=== PATIENT | male | born 1950 | race Caucasian/White ===

== ENCOUNTER → 2016-11-07 | Outpatient (CLI) | payer BC ==
[2016-11-07 18:31] LABS: BLOOD UREA NITROGEN 10 mg/dl (7-18); BUN/CREATININE RATIO 9.3 (10-20); CALCIUM 9.2 mg/dl (8.5-10.1); CARBON DIOXIDE 25 mmol/L (21-32); CHLORIDE 109 mmol/L (98-107); GLUCOSE 102 mg/dl (70-99); POTASSIUM 3.7 mmol/L (3.5-5.1); SODIUM 143 mmol/L (136-145)
== END | disposition home or self-care (01) ==
LOC: C.LABMFLN 16:37
PROVIDERS: ATTEND Family Medicine
DX: R73.01 Impaired fasting glucose (principal)

== ENCOUNTER → 2017-02-16 | Outpatient (CLI) | payer BC ==
[2017-02-16 18:19] LABS: ALT/SGPT 21 U/L (12-78); AST/SGOT 28 U/L (15-37); BLOOD UREA NITROGEN 17 mg/dl (7-18); BUN/CREATININE RATIO 13.5 (10-20); CALCIUM 9.4 mg/dl (8.5-10.1); CARBON DIOXIDE 26 mmol/L (21-32); CHLORIDE 108 mmol/L (98-107); CREATININE 1.28 mg/dl (0.60-1.40); GLUCOSE 94 mg/dl (70-99); POTASSIUM 4.5 mmol/L (3.5-5.1); SODIUM 140 mmol/L (136-145)
[2017-02-16 18:30] LABS: ALKALINE PHOSPHATASE 67 U/L (45-117)
== END | disposition home or self-care (01) ==
LOC: C.LABMFLN 15:25
PROVIDERS: ATTEND Family Medicine
DX: F41.1 Generalized anxiety disorder (principal); R73.01 Impaired fasting glucose; R63.5 Abnormal weight gain

== ENCOUNTER → 2017-03-29 | Outpatient (CLI) | payer BC | END | disposition home or self-care (01) | LOC: C.LABMFLN 16:20 | PROVIDERS: ATTEND Family Medicine | DX: F31.9 Bipolar disorder, unspecified (principal) ==

== ENCOUNTER → 2017-08-31 | Outpatient (CLI) | payer BC ==
[2017-08-31 18:32] LABS: BLOOD UREA NITROGEN 19 mg/dl (7-18); CALCIUM 9.9 mg/dl (8.5-10.1); CARBON DIOXIDE 22 mmol/L (21-32); CREATININE 1.65 mg/dl (0.60-1.40); GLUCOSE 101 mg/dl (70-99); POTASSIUM 4.2 mmol/L (3.5-5.1); SODIUM 135 mmol/L (136-145)
== END | disposition home or self-care (01) ==
LOC: C.LABMFLN 16:10
PROVIDERS: ATTEND Family Medicine
DX: H53.8 Other visual disturbances (principal)

== ENCOUNTER → 2017-11-15 | Outpatient (CLI) | payer BC ==
--- NOTE | 2017-11-15 15:52 | DIAGNOSTIC IMAGING REPORT ---
RENAL ULTRASOUND HISTORY: CHRONIC KIDNEY DISEASE COMPARISON: None. FINDINGS: Right kidney: 11 cm. No hydronephrosis. Normal corticomedullary differentiation and cortical thickness. Left kidney: 11.2 cm. No hydronephrosis. Normal corticomedullary differentiation and cortical thickness. Bladder: No bladder wall thickening. The bilateral ureteral jets were identified. Punctate echogenic foci seen within the bladder consistent with debris. The bladder is mildly distended. IMPRESSION: 1. Normal bilateral kidneys. 2. Debris filled bladder. No bladder wall thickening. Electronically signed by: Bogdan Noguera M.D. 11/15/2017 3:51 PM Dictated Date/Time: 11/15/2017 3:49 PM
== END | disposition home or self-care (01) ==
LOC: C.ULTR 14:52
PROVIDERS: ATTEND Family Medicine
DX: N18.3 Chronic kidney disease, stage 3 (moderate) (principal)

== ENCOUNTER 2020-10-22 18:48 | Inpatient (IN) ==
[2020-10-22] MEDS ORDERED: SODIUM CHLORIDE 0.9% 1000ML 1,000 ML IV ONE (18:55)
--- NOTE | 2020-10-22 19:00 | Emergency Department Note ---
Impression & Plan Acute Lyme disease, Abnormal LFTs, Weakness ED Provider Note NAME: NOLA MURILLO AGE: 70 SEX: M : 1950 ARRIVES VIA: Ambulance INFORMANT: Patient, EMS personnel ED PROVIDER(S): Karel Iqbal DO CHIEF COMPLAINT: Weakness HPI: The patient is a 70-year-old male who presented to the emergency department for an evaluation of generalized weakness. The patient normally lives at home. He has been lying on the couch for 4 days not able to get off. He was incontinent of stool as well as urine. The patient noticed a rash behind his left knee. He describes no chest pain. He denies having any shortness of breath or cough. He was noted to have a low-grade fever by the prehospital personnel. He denies having any recent traveling. He did not get the Covid vaccination. The patient states that he has been having generalized weakness and every time he tries to go off the couch she cannot do it. He has had decreased p.o. intake because of this. He notices no swelling in his legs but he does have pain in the area where the rashes. He does live in a tick infested area. The patient was also supposed to have x-rays of his lower back because of ongoing back pain recently. ROS: See above HPI for pertinent positives & negatives. A total of 10 systems reviewed and were otherwise negative. PAST MEDICAL HISTORY: See Below PAST SURGICAL HISTORY: See Below FAMILY HISTORY: See Below SOCIAL HISTORY: See Below HOME MEDICATIONS: See Below ALLERGIES: See Below VITALS: See Below PHYSICAL EXAMINATION: GENERAL: The patient is awake and alert. He is somewhat anxious appearing. EYES: The conjunctivae are clear. The pupils are round and reactive. EARS, NOSE, MOUTH AND THROAT: The nose is without any evidence of any deformity. Mucous membranes are dry. NECK: The neck is nontender and supple. RESPIRATORY: Normal respiratory effort is noted there is no evidence of wheezing rhonchi or rales CARDIOVASCULAR: Regular rate and rhythm noted there no murmurs rubs or gallops normal S1 normal S2. GASTROINTESTINAL: The abdomen is soft. Abdomen is nontender. MUSCULOSKELETAL/EXTREMITIES: There is no evidence of gross deformity full range of motion is noted in the hips and shoulders. SKIN: There is no pedal edema noted. Skin is warm and dry. No calf tenderness was elicited. There is a large bull's-eye rash in the left popliteal fossa. NEUROLOGIC: Patient is awake alert and oriented x 3. 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 Patient is able to hold each leg off the bed. MEDICAL DECISION MAKING: The patient is a 70-year-old male who presented to the emergency department for an evaluation of generalized weakness. The patient noticed a rash behind his left knee. This rash does appear to be consistent with Lyme disease. I discussed the patient's laboratory and radiographic studies with him. He was treated with IV fluids as well as IV antibiotics. He was found to have elevated liver function studies which could represent other tickborne illness. I discussed the patient[facility] have agreed to evaluate the patient in the emergency department for further management and disposition. The patient was feeling much better on subsequent reevaluation. Triage Nursing notes reviewed. Prior medical records reviewed Vital Signs: reviewed and remarkable for no significant abnormalities Differential diagnosis: Infection, dehydration, metabolic abnormality, hypo/hyperglycemia, electrolyte disturbance, anemia, hypoxia, cardiac sources, intracerebral event, toxicologic, neurologic, as well as other pathologies. ER treatment provided: See below Diagnostics interpreted by me: Cardiac Monitoring: An order was placed for continuous cardiac monitoring. The monitor shows a rate of 89 bpm with sinus rhythm. Laboratory studies: As stated above and show below. Imaging studies: See below Consultation(s): I discussed this case with Dr. Foster who is [facility] He is agreed to evaluate the patient in the emergency department. Past Med/Surg History Medical History Abdominal bloating Abdominal pain, generalized Anxiety Chronic insomnia Diverticular disease History of encephalitis History of lumbar puncture History of rheumatic fever as a child Hypertension Surgical History History of appendectomy History of colonoscopy History of lumbar spinal fusion History of nasal polypectomy History of tonsillectomy History of tooth extraction all teeth removed History of uvulectomy Family History Father Family history of diabetes mellitus Coronary heart disease Uncle Family history of diabetes mellitus Aunt Family history of diabetes mellitus Other No family history of adverse response to anesthesia Social History Smoking Status: Never smoker Age Started Using Tobacco: 22; Age Quit Using Tobacco: 51; Second Hand Exposure: No; Hx Alcohol Use: Yes Alcohol type: beer Hx Substance Use: No Preferred Language: Georgian Communication Ability: Effective Laundry Routeman Required: No Beliefs That Will Affect Care: None Current Living Situation: Alone Other Information That Helps Us Care for You: No Feels Safe at Home: Yes Safety Concerns: Feels Safe At This Time Childhood Exposure to Second-Hand Smoke: No Seatbelt Use: always Sunscreen Use: Yes Assistive Devices: None Allergies Allergies Allergy/AdvReac Type Severity Reaction Status Date / Time bee venom protein (honey bee) Allergy Severe facial Verified 10/22/20 19:25 swelling No Known Drug Allergies Allergy Verified 10/22/20 19:25 Home Meds Previous Rx's Medication Instructions Recorded amlodipine 2.5 mg tablet 2.5 mg PO QAM #90 tab 05/20/20 mirtazapine 45 mg tablet 45 mg PO HS #90 tab 05/20/20 trazodone 50 mg tablet 150 mg PO HS #90 tab 05/20/20 quetiapine 100 mg tablet See Rx Instructions .ROUTE 08/26/20 .COMPLEX #84 tab olanzapine 20 mg tablet 20 mg PO HS #30 tab 09/18/20 Results & Data (ED) Vital Signs Vital Signs - 24 hr 10/22/20 18:59 10/22/20 19:08 10/22/20 19:30 Temperature 37 C Temperature Source Oral Pulse Rate 90 Pulse Rate from SpO2 Sensor Pulse Rhythm Regular Pulse Strength Normal Respiratory Rate 18 Respiratory Effort / Characteristics Non-Labored Non-Labored Respiratory Depth Normal Blood Pressure 139/95 Blood Pressure Mean 109 Pulse Oximetry 97 95 Oxygen Delivery Method Room Air Room Air Sepsis Recent Fever Within 48 Hours No Sepsis New/Unexplained Change in Mental Status N/A Sepsis Action Taken by Nursing No Action Required 10/22/20 20:17 10/22/20 20:22 10/22/20 20:30 Temperature Temperature Source Pulse Rate 79 78 80 Pulse Rate from SpO2 Sensor 79 79 80 Pulse Rhythm Pulse Strength Respiratory Rate 25 H 30 H 29 H Respiratory Effort / Characteristics Respiratory Depth Blood Pressure 141/79 H 139/80 Blood Pressure Mean 99 99 Pulse Oximetry 93 94 94 Oxygen Delivery Method Sepsis Recent Fever Within 48 Hours Sepsis New/Unexplained Change in Mental Status Sepsis Action Taken by Nursing 10/22/20 20:31 10/22/20 21:00 10/22/20 21:30 Temperature Temperature Source Pulse Rate 78 82 81 Pulse Rate from SpO2 Sensor 77 82 Pulse Rhythm Pulse Strength Respiratory Rate 24 17 24 Respiratory Effort / Characteristics Respiratory Depth Blood Pressure 144/80 H Blood Pressure Mean 101 Pulse Oximetry 93 94 Oxygen Delivery Method Sepsis Recent Fever Within 48 Hours Sepsis New/Unexplained Change in Mental Status Sepsis Action Taken by Nursing 10/22/20 22:00 10/22/20 22:01 10/22/20 22:30 Temperature Temperature Source Pulse Rate 77 78 88 Pulse Rate from SpO2 Sensor 77 78 Pulse Rhythm Pulse Strength Respiratory Rate 27 H 25 H 20 Respiratory Effort / Characteristics Respiratory Depth Blood Pressure 131/75 127/96 Blood Pressure Mean 93 106 Pulse Oximetry 93 93 Oxygen Delivery Method Sepsis Recent Fever Within 48 Hours Sepsis New/Unexplained Change in Mental Status Sepsis Action Taken by Usp Medications Current Medication List: was personally reviewed by me Laboratory Data Attestation: I reviewed the patient's lab results. Result diagrams: 10/22/20 19:24 10/22/20 19:24 Lab Results 10/22/20 10/22/20 10/22/20 Range/Units 18:57 18:57 19:00 WBC (4.8-10.8) K/uL RBC (4.7-6.1) M/uL Hgb (14.0-18.0) g/dL Hct (42-52) % MCV (80-100) fL MCH (25-34) pg MCHC (32-36) g/dL RDW Std Deviation (36.4-46.3) fL RDW Coeff of Sravani (11.5-14.5) % Plt Count (130-400) K/uL MPV (7.4-10.4) fL Immature Gran % (Auto) % Neut % (Auto) % Lymph % (Auto) % Nicholas % (Auto) % Eos % (Auto) % Baso % (Auto) % Neut # (Auto) (1.4-6.5) K/uL Lymph # (Auto) (1.2-3.4) K/uL Nicholas # (Auto) (0.11-0.59) K/uL Eos # (Auto) (0-0.5) K/uL Baso # (Auto) (0-0.2) K/uL Immature Gran # (Auto) (0.00-0.02) K/uL PT (9.0-12.0) Seconds INR (0.9-1.1) APTT (21.0-31.0) Seconds PTT Ratio Sodium (136-145) mmol/L Potassium (3.5-5.1) mmol/L Chloride (98-107) mmol/L Carbon Dioxide (21-32) mmol/L Anion Gap (3-11) BUN (7-18) mg/dl Creatinine (0.6-1.4) mg/dl Est Cr Clr Drug Dosing ml/min Est GFR ( Amer) ml/min Est GFR (Non-Af Amer) ml/min BUN/Creatinine Ratio (10-20) Glucose (70-99) mg/dl Lactate 2.3 H* (0.4-2.0) mmol/L Calcium (8.5-10.1) mg/dl Magnesium (1.8-2.4) mg/dl Total Bilirubin (0.2-1) mg/dl AST (15-37) U/L ALT (12-78) U/L Alkaline Phosphatase (45-117) U/L Troponin I (0-0.045) ng/ml Total Protein (6.4-8.2) gm/dl Albumin (3.4-5.0) gm/dl Globulin (2.5-4.0) gm/dl Albumin/Globulin Ratio (0.9-2) Procalcitonin (0-0.5) ng/ml Anaplasma Smear Lyme Disease IgG Ab (Negative) Lyme Disease IgM Ab (Negative) COVID-19 Eval Order Covid19 at [facility] SARS-CoV-2 (PCR) NEGATIVE (Negative) 10/22/20 10/22/20 10/22/20 Range/Units 19:24 19:24 19:24 WBC 11.02 H (4.8-10.8) K/uL RBC 5.58 (4.7-6.1) M/uL Hgb 15.7 (14.0-18.0) g/dL Hct 47.8 (42-52) % MCV 85.7 (80-100) fL MCH 28.1 (25-34) pg MCHC 32.8 (32-36) g/dL RDW Std Deviation 47.1 H (36.4-46.3) fL RDW Coeff of Sravani 15.0 H (11.5-14.5) % Plt Count 190 (130-400) K/uL MPV 10.9 H (7.4-10.4) fL Immature Gran % (Auto) 1.0 % Neut % (Auto) 74.6 % Lymph % (Auto) 13.0 % Nicholas % (Auto) 10.1 % Eos % (Auto) 0.7 % Baso % (Auto) 0.6 % Neut # (Auto) 8.22 H (1.4-6.5) K/uL Lymph # (Auto) 1.43 (1.2-3.4) K/uL Nicholas # (Auto) 1.11 H (0.11-0.59) K/uL Eos # (Auto) 0.08 (0-0.5) K/uL Baso # (Auto) 0.07 (0-0.2) K/uL Immature Gran # (Auto) 0.11 H (0.00-0.02) K/uL PT (9.0-12.0) Seconds INR (0.9-1.1) APTT (21.0-31.0) Seconds PTT Ratio Sodium (136-145) mmol/L Potassium (3.5-5.1) mmol/L Chloride (98-107) mmol/L Carbon Dioxide (21-32) mmol/L Anion Gap (3-11) BUN (7-18) mg/dl Creatinine (0.6-1.4) mg/dl Est Cr Clr Drug Dosing ml/min Est GFR ( Amer) ml/min Est GFR (Non-Af Amer) ml/min BUN/Creatinine Ratio (10-20) Glucose (70-99) mg/dl Lactate (0.4-2.0) mmol/L Calcium (8.5-10.1) mg/dl Magnesium (1.8-2.4) mg/dl Total Bilirubin (0.2-1) mg/dl AST (15-37) U/L ALT (12-78) U/L Alkaline Phosphatase (45-117) U/L Troponin I (0-0.045) ng/ml Total Protein (6.4-8.2) gm/dl Albumin (3.4-5.0) gm/dl Globulin (2.5-4.0) gm/dl Albumin/Globulin Ratio (0.9-2) Procalcitonin (0-0.5) ng/ml Anaplasma Smear See Comment Lyme Disease IgG Ab Negative (Negative) Lyme Disease IgM Ab Positive A (Negative) COVID-19 Eval Order SARS-CoV-2 (PCR) (Negative) 10/22/20 10/22/20 10/22/20 Range/Units 19:24 19:24 19:24 WBC (4.8-10.8) K/uL RBC (4.7-6.1) M/uL Hgb (14.0-18.0) g/dL Hct (42-52) % MCV (80-100) fL MCH (25-34) pg MCHC (32-36) g/dL RDW Std Deviation (36.4-46.3) fL RDW Coeff of Sravani (11.5-14.5) % Plt Count (130-400) K/uL MPV (7.4-10.4) fL Immature Gran % (Auto) % Neut % (Auto) % Lymph % (Auto) % Nicholas % (Auto) % Eos % (Auto) % Baso % (Auto) % Neut # (Auto) (1.4-6.5) K/uL Lymph # (Auto) (1.2-3.4) K/uL Nicholas # (Auto) (0.11-0.59) K/uL Eos # (Auto) (0-0.5) K/uL Baso # (Auto) (0-0.2) K/uL Immature Gran # (Auto) (0.00-0.02) K/uL PT 10.5 (9.0-12.0) Seconds INR 1.0 (0.9-1.1) APTT 23.6 (21.0-31.0) Seconds PTT Ratio 0.9 Sodium 134 L (136-145) mmol/L Potassium 3.7 (3.5-5.1) mmol/L Chloride 98 (98-107) mmol/L Carbon Dioxide 31 (21-32) mmol/L Anion Gap 5.0 (3-11) BUN 25 H (7-18) mg/dl Creatinine 1.10 (0.6-1.4) mg/dl Est Cr Clr Drug Dosing 85.5 ml/min Est GFR ( Amer) 79.0 ml/min Est GFR (Non-Af Amer) 68.1 ml/min BUN/Creatinine Ratio 23.0 H (10-20) Glucose 102 H (70-99) mg/dl Lactate (0.4-2.0) mmol/L Calcium 8.7 (8.5-10.1) mg/dl Magnesium 3.0 H (1.8-2.4) mg/dl Total Bilirubin 1.1 H (0.2-1) mg/dl AST 246 H (15-37) U/L ALT 111 H (12-78) U/L Alkaline Phosphatase 72 (45-117) U/L Troponin I < 0.015 (0-0.045) ng/ml Total Protein 8.2 (6.4-8.2) gm/dl Albumin 3.2 L (3.4-5.0) gm/dl Globulin 5.0 H (2.5-4.0) gm/dl Albumin/Globulin Ratio 0.6 L (0.9-2) Procalcitonin 0.56 H (0-0.5) ng/ml Anaplasma Smear Lyme Disease IgG Ab (Negative) Lyme Disease IgM Ab (Negative) COVID-19 Eval Order SARS-CoV-2 (PCR) (Negative) 10/22/20 Range/Units 20:47 WBC (4.8-10.8) K/uL RBC (4.7-6.1) M/uL Hgb (14.0-18.0) g/dL Hct (42-52) % MCV (80-100) fL MCH (25-34) pg MCHC (32-36) g/dL RDW Std Deviation (36.4-46.3) fL RDW Coeff of Sravani (11.5-14.5) % Plt Count (130-400) K/uL MPV (7.4-10.4) fL Immature Gran % (Auto) % Neut % (Auto) % Lymph % (Auto) % Nicholas % (Auto) % Eos % (Auto) % Baso % (Auto) % Neut # (Auto) (1.4-6.5) K/uL Lymph # (Auto) (1.2-3.4) K/uL Nicholas # (Auto) (0.11-0.59) K/uL Eos # (Auto) (0-0.5) K/uL Baso # (Auto) (0-0.2) K/uL Immature Gran # (Auto) (0.00-0.02) K/uL PT (9.0-12.0) Seconds INR (0.9-1.1) APTT (21.0-31.0) Seconds PTT Ratio Sodium (136-145) mmol/L Potassium (3.5-5.1) mmol/L Chloride (98-107) mmol/L Carbon Dioxide (21-32) mmol/L Anion Gap (3-11) BUN (7-18) mg/dl Creatinine (0.6-1.4) mg/dl Est Cr Clr Drug Dosing ml/min Est GFR ( Amer) ml/min Est GFR (Non-Af Amer) ml/min BUN/Creatinine Ratio (10-20) Glucose (70-99) mg/dl Lactate 1.8 (0.4-2.0) mmol/L Calcium (8.5-10.1) mg/dl Magnesium (1.8-2.4) mg/dl Total Bilirubin (0.2-1) mg/dl AST (15-37) U/L ALT (12-78) U/L Alkaline Phosphatase (45-117) U/L Troponin I (0-0.045) ng/ml Total Protein (6.4-8.2) gm/dl Albumin (3.4-5.0) gm/dl Globulin (2.5-4.0) gm/dl Albumin/Globulin Ratio (0.9-2) Procalcitonin (0-0.5) ng/ml Anaplasma Smear Lyme Disease IgG Ab (Negative) Lyme Disease IgM Ab (Negative) COVID-19 Eval Order SARS-CoV-2 (PCR) (Negative) Administered Medications Doxycycline Hyclate 100 mg/ (Dextrose) 110 mls @ 50 mls/hr IV Q12H ROSS Stop: 11/02/20 00:59 Last Infusion: 10/23/20 03:11 Dose: 0 mls/hr Documented by: [id number] Admin: 10/23/20 01:05 Dose: 50 mls/hr Documented by: [id number] Temazepam (Temazepam 15 Mg Capsule) 30 mg PO HSZ PRN PRN Reason: Insomnia Stop: 11/22/20 00:04 Last Admin: 10/23/20 00:41 Dose: 30 mg Documented by: [id number] Discontinued Medications Sodium Chloride (Nss 1000ml) 1,000 mls @ 999 mls/hr IV .[id number] ONE Stop: 10/22/20 19:55 Last Infusion: 10/22/20 21:00 Dose: 0 mls/hr Documented by: [id number] Admin: 10/22/20 19:43 Dose: 999 mls/hr Documented by: [id number] Ceftriaxone Sodium (Rocephin) 1,000 mg in 50 mls @ 100 mls/hr IV NOW STA Stop: 10/22/20 19:54 Last Infusion: 10/22/20 20:33 Dose: 0 mls/hr Documented by: [id number] Admin: 10/22/20 19:43 Dose: 100 mls/hr Documented by: [id number] Ioversol (Optiray 320 100ml) 100 ml IV ONCE ONE Stop: 10/22/20 22:51 Last Admin: 10/22/20 22:50 Dose: 93 ml Documented by: [id number] Imaging Data Radiologist's Impression: Chest X-Ray 10/22/20 18:55 XR chest 1V portable CLINICAL HISTORY: SEPSIS COMPARISON STUDY: No previous studies for comparison. FINDINGS: The heart is enlarged. There are bibasilar opacities likely atelectatic although an infectious/inflammatory process could appear similar. Th ere is no failure. There are no large pleural effusions.[ IMPRESSION: 1. Cardiomegaly 2. Bibasilar opacities, likely atelectatic although an infectious/inflammatory process could appear similar ACT 112: Negative or not required by law. Electronically signed by: Alcon Antonio M.D. 10/22/2020 7:16 PM Discharge Plan Visit Data Chief Complaint: Weakness ED Provider: Karel Iqbal Discharge Problem: Acute Lyme disease, Abnormal LFTs, Weakness Patient Disposition: Admitted As Inpatient Condition: Good Discharge Instructions Interventions: ED Discharge Assessment Last Done: 10/22/20 23:45
--- NOTE | 2020-10-22 19:17 | XRay Report ---
XR chest 1V portable CLINICAL HISTORY: SEPSIS COMPARISON STUDY: No previous studies for comparison. FINDINGS: The heart is enlarged. There are bibasilar opacities likely atelectatic although an infecti ous/inflammatory process could appear similar. There is no failure. There are no large pleural effusi ons.[ IMPRESSION: 1. Cardiomegaly 2. Bibasilar opacities, likely atelectatic although an infectious/inflammatory process could appear s imilar ACT 112: Negative or not required by law. Electronically signed by: Alcon Antonio M.D. 10/22/2020 7:16 PM
[2020-10-22] MEDS ORDERED: cefTRIAXone SODIUM 1,000 MG/50 ML BAG IV STA (19:25)
[2020-10-22 19:50] LABS: Basophils # (auto) 0.07 K/uL (0-0.2); Basophils % (auto) 0.6 %; Eosinophils # (auto) 0.08 K/uL (0-0.5); Eosinophils % (auto) 0.7 %; Hematocrit (blood only) 47.8 % (42-52); Hemoglobin 15.7 g/dL (14.0-18.0); Immature Granulocytes # (auto) 0.11 K/uL (0.00-0.02); Lymphocytes # (auto) 1.43 K/uL (1.2-3.4); Mean Corpuscular Hemoglobin 28.1 pg (25-34); Mean Corpuscular Hgb Conc 32.8 g/dL (32-36); Mean Corpuscular Volume 85.7 fL (80-100); Mean Platelet Volume 10.9 fL (7.4-10.4); Monocytes # (auto) 1.11 K/uL (0.11-0.59); Monocytes % (auto) 10.1 %; Neutrophils # (auto) 8.22 K/uL (1.4-6.5); Neutrophils % (auto) 74.6 %; Platelet Count 190 K/uL (130-400); RDW Standard Deviation 47.1 fL (36.4-46.3); Red Blood Count 5.58 M/uL (4.7-6.1); White Blood Count 11.02 K/uL (4.8-10.8)
[2020-10-22 20:00] LABS: Partial Thromboplastin Ratio 0.9; Partial Thromboplastin Time 23.6 Seconds (21.0-31.0); Prothrombin Time 10.5 Seconds (9.0-12.0)
[2020-10-22 20:06] LABS: Alanine Aminotransferase 111 U/L (12-78); Albumin Level 3.2 gm/dl (3.4-5.0); Aspartate Aminotransferase 246 U/L (15-37); Blood Urea Nitrogen 25 mg/dl (7-18); Calcium 8.7 mg/dl (8.5-10.1); Carbon Dioxide 31 mmol/L (21-32); Chloride 98 mmol/L (98-107); Creatinine Clr Calc Pharmacy 85.5 ml/min; Est GFR (Non-African American) 68.1 ml/min; Glucose 102 mg/dl (70-99); Potassium 3.7 mmol/L (3.5-5.1); Sodium 134 mmol/L (136-145)
[2020-10-22 20:11] LABS: Albumin Globulin Ratio 0.6 (0.9-2); Alkaline Phosphatase 72 U/L (45-117); Bilirubin,Total 1.1 mg/dl (0.2-1); Total Protein 8.2 gm/dl (6.4-8.2); Troponin I < 0.015 ng/ml (0-0.045)
[2020-10-22 20:38] LABS: Lyme Ab IgG w/WB Rflx Negative (Negative)
[2020-10-22 21:04] LABS: Lyme Ab IgM w/WB Rflx Positive (Negative)
--- NOTE | 2020-10-22 22:47 | History & Physical Report ---
Date of Service October 22, 2020 Assessment & Plan (1) Lyme disease: Placed on ceftriaxone 2 g IV daily and doxycycline 100 mg IV every 12 hours Anaplasmosis smear negative. Ig M+ with IgG for Lyme disease pending. Western blot confirmation will be sent Anaplasmosis antibody pending Ehrlichiosis and babesiosis testing pending Present on Admission?: Yes (2) Pneumonia: Bibasilar infiltrates Ceftriaxone IV and doxycycline IV as noted above. Mildly hypoxic with pulse ox 93% on room air DuoNebs every 2 hours as needed Present on Admission?: Yes (3) Bipolar 1 disorder: Bipolar 1 disorder/persistent insomnia/SISI- Continue usual regimen of mirtazapine, olanzapine, Seroquel and trazodone. Patient reports that he has done better in the past with addition of temazepam 30 mg at bedtime as needed Present on Admission?: Yes (4) CKD (chronic kidney disease), stage III: Creatinine within normal range 1.10 Present on Admission?: Yes (5) Generalized anxiety disorder: See above Present on Admission?: Yes (6) Persistent insomnia: See above Present on Admission?: Yes (7) Neurogenic claudication due to lumbar spinal stenosis: No complaints today Present on Admission?: Yes (8) Benign essential hypertension: Continue amlodipine 2.5 mg daily Present on Admission?: Yes (9) Impaired fasting glucose: Glucose 102 upon admission. Unless elevated on follow-up laboratories, would not pursue Accu-Cheks at this time Present on Admission?: Yes (10) Abnormal LFTs: CT abdomen and pelvis without acute findings related to liver disease. Question whether secondary to spirochete illness. Follow laboratory serially Present on Admission?: Yes History of Present Illness Chief Complaint: The patient presents to the emergency department with progressively worsening weakness over the past 4 days, and today noticed a circ ular red rash on the medial aspect of his left knee Primary Care Provider: Saeid Pastor MD The patient is a 70-year-old male with a past medical history including neurogenic claudication due to lumbar spinal stenosis, hypertension, bipolar 1 disorder, CKD stage III, chronic diarrhea, SISI, impaired fasting glucose, obes ity and persistent insomnia. He reports that he lives near [facility], where there are plenty of ticks, but does not remember ever having a tick bite in his medial left knee area. He reports that he has been unable to get up off of his couch for the past few days, and he was noted to be incontinent of stool and urine when found by EMS personnel today. Allergies Allergy/AdvReac Type Severity Reaction Status Date / Time bee venom protein (honey bee) Allergy Severe facial Verified 10/22/20 19:25 swelling No Known Drug Allergies Allergy Verified 10/22/20 19:25 Home Medications Medication Instructions Recorded Confirmed Type amlodipine 2.5 mg tablet 2.5 mg PO QAM #90 tab 05/20/20 10/22/20 Rx mirtazapine 45 mg tablet 45 mg PO HS #90 tab 05/20/20 10/22/20 Rx trazodone 50 mg tablet 150 mg PO HS #90 tab 05/20/20 10/22/20 Rx quetiapine 100 mg tablet See Rx Instructions .ROUTE 08/26/20 10/22/20 Rx .COMPLEX #84 tab olanzapine 20 mg tablet 20 mg PO HS #30 tab 09/18/20 10/22/20 Rx Past Med/Surg History Medical History Abdominal bloating Abdominal pain, generalized Anxiety Chronic insomnia Diverticular disease History of encephalitis History of lumbar puncture History of rheumatic fever as a child Hypertension Surgical History History of appendectomy History of colonoscopy History of lumbar spinal fusion History of nasal polypectomy History of tonsillectomy History of tooth extraction all teeth removed History of uvulectomy Family History Father Family history of diabetes mellitus Coronary heart disease Uncle Family history of diabetes mellitus Aunt Family history of diabetes mellitus Other No family history of adverse response to anesthesia Social History Smoking Status: Unknown if ever smoked Age Started Using Tobacco: 22; Age Quit Using Tobacco: 51; Second Hand Exposure: No; Hx Alcohol Use: Yes Alcohol type: wine Hx Substance Use: No Preferred Language: Malawian Communication Ability: Effective 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 Required: No Beliefs That Will Affect Care: Muslim Muslim Beliefs: "doesnt believe in prolonging life, no surgeries if needed" Current Living Situation: Alone Feels Safe at Home: Yes Childhood Exposure to Second-Hand Smoke: No Seatbelt Use: always Sunscreen Use: Yes Assistive Devices: Denture - Upper, Denture - Lower and Glasses Review of Systems Review of Systems: The patient denies chest pain, palpitations, shortness of breath, dyspnea on exertion, cough, lower extremity swelling, sore throat, fevers, chills, sweats, nausea, vomiting, diarrhea , constipation, abdominal pain, pelvic pain, blood in urine or stool, dysuria, urinary frequency or urgency, loss of consciousness, abnormal bruising or bleeding, imbalance, focal weakness, numbness or tingling in arms or legs, generalized arthralgias or myalgias, back or neck pain, or night sweats. The review of systems is otherwise negative other than for that already noted above, and at least 10 systems have been reviewed. Physical Exam Physical Exam: The patient is awake, alert and oriented 3, appears unkempt, normocephalic and atraumatic, lying in bed and in no acute distress. HEENT--PERRL, EOMI, mucous membranes and oropharynx normal. Neck--supple. No JVD. No bruits. Thyroid normal, trachea midline, no adenopathy. Heart--normal S1 and S2. No murmurs, rubs or gallops. Lungs--decreased breath sounds at the bases bilaterally. No respiratory distress, no accessory muscle use. Abdomen--normal bowel sounds and soft. Nontender. Nondistended. Morbidly obese Extremities--no cyanosis or clubbing. No edema. Dermatologic--along the medial and posterior aspect of left knee, there is a mildly warm and red rash. Neurologic--cranial nerves II through XII grossly intact. Rheumatologic--normal range of motion. Psychiatric--normal affect. Results & Data Results & Data ([facility]) Vital Signs (Past 12 Hours) Vital Signs Temp Pulse Resp BP Pulse Ox 10/22/20 22:01 78 25 H 93 10/22/20 22:00 77 27 H 131/75 93 10/22/20 21:30 81 24 10/22/20 21:00 82 17 144/80 H 94 10/22/20 20:31 78 24 93 10/22/20 20:30 80 29 H 139/80 94 10/22/20 20:22 78 30 H 94 10/22/20 20:17 79 25 H 141/79 H 93 10/22/20 19:08 95 10/22/20 18:59 98.6 F 90 18 139/95 97 Laboratory Results Laboratory Results WBC 11.02 K/uL (4.8-10.8) H 10/22/20 19:24 RBC 5.58 M/uL (4.7-6.1) 10/22/20 19:24 Hgb 15.7 g/dL (14.0-18.0) 10/22/20 19:24 Hct 47.8 % (42-52) 10/22/20 19:24 MCV 85.7 fL (80-100) 10/22/20 19:24 MCH 28.1 pg (25-34) 10/22/20 19:24 MCHC 32.8 g/dL (32-36) 10/22/20 19:24 RDW Std Deviation 47.1 fL (36.4-46.3) H 10/22/20 19:24 RDW Coeff of Sravani 15.0 % (11.5-14.5) H 10/22/20 19:24 Plt Count 190 K/uL (130-400) 10/22/20 19:24 MPV 10.9 fL (7.4-10.4) H 10/22/20 19:24 Immature Gran % (Auto) 1.0 % 10/22/20 19:24 Neut % (Auto) 74.6 % 10/22/20 19:24 Lymph % (Auto) 13.0 % 10/22/20 19:24 Jasper % (Auto) 10.1 % 10/22/20 19:24 Eos % (Auto) 0.7 % 10/22/20 19:24 Baso % (Auto) 0.6 % 10/22/20 19:24 Neut # (Auto) 8.22 K/uL (1.4-6.5) H 10/22/20 19:24 Lymph # (Auto) 1.43 K/uL (1.2-3.4) 10/22/20 19:24 Jasper # (Auto) 1.11 K/uL (0.11-0.59) H 10/22/20 19:24 Eos # (Auto) 0.08 K/uL (0-0.5) 10/22/20 19:24 Baso # (Auto) 0.07 K/uL (0-0.2) 10/22/20 19:24 Immature Gran # (Auto) 0.11 K/uL (0.00-0.02) H 10/22/20 19:24 PT 10.5 Seconds (9.0-12.0) 10/22/20 19:24 INR 1.0 (0.9-1.1) 10/22/20 19:24 APTT 23.6 Seconds (21.0-31.0) 10/22/20 19:24 PTT Ratio 0.9 10/22/20 19:24 Sodium 134 mmol/L (136-145) L 10/22/20 19:24 Potassium 3.7 mmol/L (3.5-5.1) 10/22/20 19:24 Chloride 98 mmol/L (98-107) 10/22/20 19:24 Carbon Dioxide 31 mmol/L (21-32) 10/22/20 19:24 Anion Gap 5.0 (3-11) 10/22/20 19:24 BUN 25 mg/dl (7-18) H 10/22/20 19:24 Creatinine 1.10 mg/dl (0.6-1.4) 10/22/20 19:24 Est Cr Clr Drug Dosing 85.5 ml/min 10/22/20 19:24 Est GFR ( Amer) 79.0 ml/min 10/22/20 19:24 Est GFR (Non-Af Amer) 68.1 ml/min 10/22/20 19:24 BUN/Creatinine Ratio 23.0 (10-20) H 10/22/20 19:24 Glucose 102 mg/dl (70-99) H 10/22/20 19:24 Lactate 1.8 mmol/L (0.4-2.0) 10/22/20 20:47 Calcium 8.7 mg/dl (8.5-10.1) 10/22/20 19:24 Magnesium 3.0 mg/dl (1.8-2.4) H 10/22/20 19:24 Total Bilirubin 1.1 mg/dl (0.2-1) H 10/22/20 19:24 AST 246 U/L (15-37) H 10/22/20 19:24 ALT 111 U/L (12-78) H 10/22/20 19:24 Alkaline Phosphatase 72 U/L (45-117) 10/22/20 19:24 Troponin I < 0.015 ng/ml (0-0.045) 10/22/20 19:24 Total Protein 8.2 gm/dl (6.4-8.2) 10/22/20 19:24 Albumin 3.2 gm/dl (3.4-5.0) L 10/22/20 19:24 Globulin 5.0 gm/dl (2.5-4.0) H 10/22/20 19:24 Albumin/Globulin Ratio 0.6 (0.9-2) L 10/22/20 19:24 Procalcitonin 0.56 ng/ml (0-0.5) H 10/22/20 19:24 Anaplasma Smear See Comment 10/22/20 19:24 Lyme Disease IgG Ab Negative (Negative) 10/22/20 19:24 Lyme Disease IgM Ab Positive (Negative) A 10/22/20 19:24 COVID-19 Eval Order Covid19 at [facility] 10/22/20 18:57 SARS-CoV-2 (PCR) NEGATIVE (Negative) 10/22/20 18:57 Impressions Chest X-Ray 10/22/20 18:55 XR chest 1V portable CLINICAL HISTORY: SEPSIS COMPARISON STUDY: No previous studies for comparison. FINDINGS: The heart is enlarged. There are bibasilar opacities likely atelectatic although an infectious/inflammatory process could appear similar. There is no failure. There are no large pleural effusions.[ IMPRESSION: 1. Cardiomegaly 2. Bibasilar opacities, likely atelectatic although an infectious/inflammatory process could appear similar ACT 112: Negative or not required by law. Electronically signed by: Alcon Antonio M.D. 10/22/2020 7:16 PM Diagnostic Findings [facility] Patient: NOLA MURILLO (Male) : 52 Status: ER Date: 10/22/20 23:04 Room #: History: ELEVATED LFT'S Slices: [phone] Priors: Tech: Siddhartha Davila @ [phone] Exams: CT ABDOMEN & PELVIS With Contrast Contrast: IV Amt: 93 ML OPTIRAY 320 Accession Numbers: [id number] Preliminary Findings Only See Final Report For Complete Findings CT ABDOMEN & PELVIS With Contrast: No acute intra-abdominal abnormality. Fat-containing right inguinal hernia. Bibasilar atelectasis. Radiologist: Kel Reed MD Study ready at 23:08 and initial results transmitted at 23:20 *This report constitutes a preliminary interpretation only. Non-acute findings felt to be unrelated to the clinical presentation may not be discussed in this report. The study will be interpreted and a final report will be generated by t local Radiologist the following shift. To reach the hospital radiology department call [phone]. If a discrepancy is found between the preliminary and final interpretations of this study, please notify us via our Client Portal at [email or web address] QA Exams.You can also fax this report with a description of the discrepancy, or include the final report, to our daytime fax number [phone].If faxing, please indicate the severity of discrepancy using one of the following categories: [ ] 1 - Agree/Informational [ ] 2 - Unlikely to Affect Management [ ] 3 - Possible Eventual Change of Management [ ] 4 - Probable Immediate Change of Management For all other patient related information, please fax us at [phone]. [id number] Code Status & VTE Plan Code Status Full code VTE Prophylaxis Plan VTE Prophylaxis will be ordered: Yes PG Care Time/CCT Total # of Minutes Spent Total Time Spent with Patient: Total time spent is greater than 50% in coordination of care (as documented) at patient's floor/unit and/or counseling patient: Coding Level of Care Code 47309 Initial Inpt Care Lvl 3 Diagnoses Lyme disease A69.20 Pneumonia J18.9 Bipolar 1 disorder F31.9 CKD (chronic kidney disease), stage III N18.3 Generalized anxiety disorder F41.1 Persistent insomnia G47.00 Neurogenic claudication due to lumbar spinal stenosis M48.062 Benign essential hypertension I10 Impaired fasting glucose R73.01 Abnormal LFTs R94.5
[2020-10-22] MEDS ORDERED: OPTIRAY 320 100ml IV ONE (22:50)
[2020-10-23] MEDS ORDERED: ONDANSETRON INJ 2 MG/ML 2 ML VIAL IV PRN (00:05)
[2020-10-23] MEDS ORDERED: ALBUT/IPRATROP 3MG/0.5MG NEB 3 ML VIAL NEB PRN (00:05)
[2020-10-23] MEDS ORDERED: TEMAZEPAM 15 MG CAPSULE PO PRN (00:05)
[2020-10-23] MEDS: DOXYCYCLINE HYCLATE 100 MG in DEXTROSE 5% 100 ML IV SCH ×2 (01:05→13:45)
[2020-10-23 01:42] LABS: Appearance Urine Clear (Clear); Bacteria Urine Automated Negative (Negative); Bilirubin Urine Negative (Negative); Blood Urine Trace (Negative); Color Urine Dark Yellow; Glucose Urine UA Negative (Negative); Ketones Urine Negative (Negative); Leukocyte Esterase Urine Negative (Negative); Nitrite Urine Negative (Negative); Protein Urine 1+ (Negative); Specific Gravity Urine 1.029 (1.000-1.030); Urobilinogen Urine Negative (Negative); pH Urine 5.5 (4.5-7.5)
--- NOTE | 2020-10-23 07:40 | CT Scan Report ---
ABDOMEN AND PELVIS CT WITH IV CONTRAST CT DOSE: 1519.79 mGy.cm HISTORY: Acutely elevated LFTs elevatre LFTs TECHNIQUE: Multiaxial CT images of the abdomen and pelvis were performed following the IV administrat ion of 93 cc of Optiray, A dose lowering technique was utilized adhering to the principles of ALARA. COMPARISON STUDY: Renal ultrasound 11/15/2017, lumbar spine MR 03/05/2007 FINDINGS: The imaged inferior cardiac chambers are unremarkable. Bibasilar opacities suggest atelecta sis. There is no pneumatosis or pneumoperitoneum. The spleen, pancreas, adrenal glands, and gallbladd er appear unremarkable. There is mild marginal nodularity of the liver. No ascites. No hepatic mass l esion. Patency of the hepatic and portal veins. Probable cyst of the inferior pole left kidney, 6 mm. 3 mm nonobstructing calculus of the interpolar left kidney. Unremarkable right kidney. No hydronephrosis. Mild urinary bladder distention. Calcifica tions of the central prostate. Moderate sized fat filled right inguinal hernia. Atherosclerosis of th e aorta without aneurysm. There is no adenopathy. No bowel obstruction or bowel wall thickening. Colonic diverticulosis. No CT evidence of acute divert iculitis. Appendectomy. No ascites or mesenteric inflammation. Unremarkable soft tissues. Degenerativ e changes of the spine, pelvis and hips. IMPRESSION: 1. No acute intra-abdominal or intrapelvic abnormality. 2. Mild marginal nodularity of the liver is suspicious for cirrhosis. No ascites or hepatic mass. 3. Nonobstructing left nephrolithiasis. 4. Colonic diverticulosis. 5. Moderate sized fat filled right inguinal hernia. ACT 112: Negative or not required by law. The above report was generated using voice recognition software. It may contain grammatical, syntax o r spelling errors. Electronically signed by: Warren Cardenas M.D. 10/23/2020 7:39 AM
[2020-10-23 08:29] LABS: Basophils # (auto) 0.08 K/uL (0-0.2); Basophils % (auto) 0.7 %; Eosinophils # (auto) 0.17 K/uL (0-0.5); Eosinophils % (auto) 1.4 %; Hemoglobin 15.1 g/dL (14.0-18.0); Immature Granulocytes # (auto) 0.14 K/uL (0.00-0.02); Immature Granulocytes % (auto) 1.2 %; Lymphocytes # (auto) 1.73 K/uL (1.2-3.4); Lymphocytes % (auto) 14.3 %; Mean Corpuscular Hemoglobin 28.2 pg (25-34); Mean Corpuscular Hgb Conc 32.8 g/dL (32-36); Mean Corpuscular Volume 85.8 fL (80-100); Mean Platelet Volume 10.3 fL (7.4-10.4); Monocytes # (auto) 0.74 K/uL (0.11-0.59); Monocytes % (auto) 6.1 %; Neutrophils % (auto) 76.3 %; Platelet Count 184 K/uL (130-400); RDW Coefficient of Variation 15.2 % (11.5-14.5); RDW Standard Deviation 48.4 fL (36.4-46.3); Red Blood Count 5.36 M/uL (4.7-6.1); White Blood Count 12.06 K/uL (4.8-10.8)
[2020-10-23 08:58] LABS: Albumin Level 2.9 gm/dl (3.4-5.0); BUN Creatinine Ratio 18.7 (10-20); Calcium 8.3 mg/dl (8.5-10.1); Creatinine Clr Calc Pharmacy 86.2 ml/min; Est GFR (African American) 79.8 ml/min; Est GFR (Non-African American) 68.9 ml/min; Potassium 3.4 mmol/L (3.5-5.1)
[2020-10-23] MEDS: amLODIPine BESYLATE 5 MG TAB PO SCH (09:00)
[2020-10-23] MEDS: cefTRIAXone SODIUM 2,000 MG in DEXTROSE 5% 50 ML IV SCH (09:00)
[2020-10-23 09:01] LABS: Albumin Globulin Ratio 0.6 (0.9-2); Globulin 4.8 gm/dl (2.5-4.0); Total Protein 7.7 gm/dl (6.4-8.2)
--- NOTE | 2020-10-23 13:41 | Hospitalist Progress Note ---
Date of Service October 23, 2020 Assessment & Plan (1) Lyme disease: * Anaplasmosis smear negative. * Ig M+ with IgG for Lyme disease pending. Western blot confirmation will be sent * Anaplasmosis antibody pending * Ehrlichiosis and babesiosis testing pending - Continue ceftriaxone and doxycycline -> Doing better today. Will get Wound Care as he has a significant ulcer on the posterior knee. (2) Pneumonia: CXR on 10/22 with bibasilar infiltrates. - Abx as above - DuoNebs every 2 hours as needed (3) CKD (chronic kidney disease), stage III: Baseline Cr ~1.0 - 1.1, eGFR ~70. CKD Stage II. Creatinine within normal range. - Monitor (4) Benign essential hypertension: BP today is 120/75. - Continue amlodipine 2.5 mg daily (5) Bipolar 1 disorder: Patient reports that he has done better in the past with addition of temazepam 30 mg at bedtime as needed along with some amount of Ativan. His PDMP shows no prescriptions for these, and I do not feel comfortable adding additional benzo to his mixture of medications. - Continue usual regimen of mirtazapine, olanzapine, Seroquel, and trazodone. - Add melatonin at night. (6) Generalized anxiety disorder: See above (7) Persistent insomnia: See above (8) Neurogenic claudication due to lumbar spinal stenosis: No complaints today. (9) Impaired fasting glucose: Glucose 102 upon admission. A1c was 5.6% in 05/2020. - Unless elevated on follow-up laboratories, would not pursue Accu-Cheks at this time. - Check A1c (10) Abnormal LFTs: AST/ALT were 245/[address] abdomen and pelvis without acute findings related to liver disease. - Follow -> Down today. (11) DVT prophylaxis: Lovenox 40 mg SQ daily Admission and Anticipated Discharge Date Admission Date: October 22, 2020 Subjective Feeling less weak today. Reports no fevers/chills, chest pain, shortness of breath, abdominal pain, nausea, or vomiting. Physical Exam Constitutional: WD/WN, vitals as above Eyes: EOM intact bilaterally; no conjunctival abnormality ENMT: external ear and nose normal, oropharynx normal Neck: trachea midline, no thyromegaly normal visual inspection Respiratory: normal respiratory effort, lungs clear to auscultation no respiratory distress Cardiovascular: RRR, no murmur, no edema Gastrointestinal (Abdomen): Inspection/Auscultation: abdomen normal to inspection; abdomen not distended Musculoskeletal: no cyanosis or clubbing, extremities motor strength 5/5 Skin: + ulcer (Left posterior knee) Neurologic: moves all extremities and awake Psychiatric: Orientation: alert, oriented to person and cooperative Results & Data Results & Data ([facility]) Vital Signs (Past 12 Hours) Vital Signs Temp Pulse Pulse Resp BP BP Pulse Ox 10/23/20 11:10 37.1 C 79 18 118/77 92 10/23/20 07:37 37.1 C 79 18 105/73 92 10/23/20 07:24 75 10/23/20 03:49 37.1 C 77 22 127/78 91 PG Care Time/CCT Total # of Minutes Spent Total Time Spent with Patient: Total time spent is greater than 50% in coordination of care (as documented) at patient's floor/unit and/or counseling patient: Coding Level of Care Code 05479 Subseq Hosp Care Lvl 3 Diagnoses Lyme disease A69.20 Pneumonia J18.9 CKD (chronic kidney disease), stage III N18.3 Benign essential hypertension I10 Bipolar 1 disorder F31.9 Generalized anxiety disorder F41.1 Persistent insomnia G47.00 Neurogenic claudication due to lumbar spinal stenosis M48.062 Impaired fasting glucose R73.01 Abnormal LFTs R94.5 DVT prophylaxis Z29.9
[2020-10-23] MEDS: OLANZapine 20 MG TABLET PO SCH (20:50)
[2020-10-23] MEDS: MIRTAZAPINE SOLTAB 15 MG PO SCH (20:50)
[2020-10-23] MEDS: traZODone HCL 50 MG TAB PO SCH (20:50)
[2020-10-23] MEDS: MELATONIN 3 MG TAB PO SCH (20:54)
[2020-10-24] MEDS: DOXYCYCLINE HYCLATE 100 MG in DEXTROSE 5% 100 ML IV SCH ×2 (01:46→13:26)
[2020-10-24 06:22] LABS: Hematocrit (blood only) 42.5 % (42-52); Mean Corpuscular Hemoglobin 27.9 pg (25-34); Mean Corpuscular Hgb Conc 32.9 g/dL (32-36); Mean Corpuscular Volume 84.7 fL (80-100); Mean Platelet Volume 9.7 fL (7.4-10.4); Platelet Count 163 K/uL (130-400); RDW Standard Deviation 46.1 fL (36.4-46.3); Red Blood Count 5.02 M/uL (4.7-6.1); White Blood Count 10.01 K/uL (4.8-10.8)
[2020-10-24 06:47] LABS: Basophils # (auto) 0.08 K/uL (0-0.2); Basophils % (auto) 0.8 %; Eosinophils # (auto) 0.23 K/uL (0-0.5); Eosinophils % (auto) 2.3 %; Immature Granulocytes # (auto) 0.59 K/uL (0.00-0.02); Immature Granulocytes % (auto) 5.9 %; Lymphocytes # (auto) 1.59 K/uL (1.2-3.4); Lymphocytes % (auto) 15.9 %; Monocytes # (auto) 1.01 K/uL (0.11-0.59); Monocytes % (auto) 10.1 %; Neutrophils # (auto) 6.51 K/uL (1.4-6.5); RBC Morphology Unremarkable
[2020-10-24 06:52] LABS: Albumin Level 2.7 gm/dl (3.4-5.0); BUN Creatinine Ratio 18.8 (10-20); Calcium 8.4 mg/dl (8.5-10.1); Creatinine Clr Calc Pharmacy 102.1 ml/min; Est GFR (Non-African American) 84.6 ml/min; Magnesium 2.7 mg/dl (1.8-2.4); Potassium 3.2 mmol/L (3.5-5.1)
[2020-10-24 06:55] LABS: Albumin Globulin Ratio 0.6 (0.9-2); Bilirubin,Total 0.9 mg/dl (0.2-1); Globulin 4.5 gm/dl (2.5-4.0); Phosphorus 2.8 mg/dl (2.5-4.9); Total Protein 7.2 gm/dl (6.4-8.2)
[2020-10-24 07:50] LABS: Estimated Average Glucose 123 mg/dl; Hemoglobin A1C 5.9 % (4.5-5.6)
[2020-10-24] MEDS: cefTRIAXone SODIUM 2,000 MG in DEXTROSE 5% 50 ML IV SCH (09:41)
[2020-10-24] MEDS: POTASSIUM CHLORIDE CRTAB 20 MEQ TABCR PO SCH ×2 (09:45→20:37)
[2020-10-24] MEDS: amLODIPine BESYLATE 5 MG TAB PO SCH (09:45)
--- NOTE | 2020-10-24 11:25 | Hospitalist Progress Note ---
Date of Service October 24, 2020 Assessment & Plan (1) Lyme disease: * Anaplasmosis smear negative. * Ig M+ with IgG for Lyme disease pending. Western blot confirmation will be sent. * Anaplasmosis antibody pending * Ehrlichiosis and babesiosis testing pending - Continue ceftriaxone and doxycycline -> Doing better today. Ulcer is actually quite small; will cancel consult for wound care. If continues to improve, consider discharge tomorrow. PT did recommend SNF; however, the patient reports he would be unwilling to go. (2) Pneumonia: CXR on 10/22 with bibasilar infiltrates. - Abx as above - DuoNebs every 2 hours as needed (3) Benign essential hypertension: BP today is 120/75. - Continue amlodipine 2.5 mg daily (4) CKD (chronic kidney disease) stage 2, GFR 60-89 ml/min: Baseline Cr ~1.0 - 1.1, eGFR ~70. CKD Stage II. - Monitor -> At baseline; Cr 0.9 on 10/24 (5) Bipolar 1 disorder: Patient reports that he has done better in the past with addition of temazepam 30 mg at bedtime as needed along with some amount of Ativan. His PDMP shows no prescriptions for these, and I do not feel comfortable adding additional benzo to his mixture of medications. - Continue usual regimen of mirtazapine, olanzapine, Seroquel, and trazodone. - Add melatonin at night. (6) Generalized anxiety disorder: See above (7) Persistent insomnia: See above (8) Neurogenic claudication due to lumbar spinal stenosis: No complaints today. (9) Impaired fasting glucose: Glucose 102 upon admission. A1c was 5.6% in 05/2020. A1c was 5.9% this admission. - Unless elevated on follow-up laboratories, would not pursue Accu-Cheks at this time. (10) Abnormal LFTs: AST/ALT were 245/[address] abdomen and pelvis without acute findings related to liver disease. - Follow -> Down today still. (11) DVT prophylaxis: Lovenox 40 mg SQ daily Admission and Anticipated Discharge Date Admission Date: October 22, 2020 Subjective Feels well today. Says he is just "catching up on sleep" since he hasn't slept in 3 days. Reports no fevers/chills, chest pain, shortness of breath, abdominal pain, nausea, or vomiting. Physical Exam Constitutional: WD/WN, vitals as above Eyes: EOM intact bilaterally; no conjunctival abnormality ENMT: external ear and nose normal, oropharynx normal Neck: trachea midline, no thyromegaly normal visual inspection Respiratory: normal respiratory effort, lungs clear to auscultation no respiratory distress Cardiovascular: RRR, no murmur, no edema Gastrointestinal (Abdomen): Inspection/Auscultation: abdomen normal to inspection; abdomen not distended Musculoskeletal: no cyanosis or clubbing, extremities motor strength 5/5 Skin: + ulcer (Left posterior knee) Neurologic: moves all extremities and awake Psychiatric: Orientation: alert, oriented to person and cooperative Results & Data Results & Data ([facility]) Vital Signs (Past 12 Hours) Vital Signs Temp Pulse Pulse Resp BP Pulse Ox 10/24/20 08:00 37 C 83 20 150/77 H 90 10/24/20 03:14 37.0 C 70 20 127/77 90 10/24/20 00:16 76 PG Care Time/CCT Total # of Minutes Spent Total Time Spent with Patient: Total time spent is greater than 50% in coordination of care (as documented) at patient's floor/unit and/or counseling patient: Coding Level of Care Code 41347 Subseq Hosp Care Lvl 3 Diagnoses Lyme disease A69.20 Pneumonia J18.9 Benign essential hypertension I10 CKD (chronic kidney disease) stage 2, GFR 60-89 ml/min N18.2 Bipolar 1 disorder F31.9 Generalized anxiety disorder F41.1 Persistent insomnia G47.00 Neurogenic claudication due to lumbar spinal stenosis M48.062 Impaired fasting glucose R73.01 Abnormal LFTs R94.5 DVT prophylaxis Z29.9
[2020-10-24] MEDS: ENOXAPARIN INJ 40 MG/0.4 ML SYR SQ SCH (13:32)
[2020-10-24] MEDS: OLANZapine 20 MG TABLET PO SCH (20:36)
[2020-10-24] MEDS: traZODone HCL 50 MG TAB PO SCH (20:37)
[2020-10-24] MEDS: MIRTAZAPINE SOLTAB 15 MG PO SCH (20:38)
[2020-10-24] MEDS: MELATONIN 3 MG TAB PO SCH (20:40)
[2020-10-25] MEDS: DOXYCYCLINE HYCLATE 100 MG in DEXTROSE 5% 100 ML IV SCH ×2 (01:12→14:21)
[2020-10-25 07:10] LABS: Hematocrit (blood only) 43.6 % (42-52); Hemoglobin 14.2 g/dL (14.0-18.0); Mean Corpuscular Hemoglobin 28.3 pg (25-34); Mean Corpuscular Hgb Conc 32.6 g/dL (32-36); Mean Platelet Volume 9.8 fL (7.4-10.4); Platelet Count 235 K/uL (130-400); RDW Coefficient of Variation 15.4 % (11.5-14.5); RDW Standard Deviation 48.6 fL (36.4-46.3); Red Blood Count 5.01 M/uL (4.7-6.1); White Blood Count 10.36 K/uL (4.8-10.8)
[2020-10-25 07:34] LABS: Albumin Globulin Ratio 0.6 (0.9-2); Albumin Level 2.7 gm/dl (3.4-5.0); BUN Creatinine Ratio 16.3 (10-20); Bilirubin,Total 0.7 mg/dl (0.2-1); Calcium 8.6 mg/dl (8.5-10.1); Est GFR (African American) 99.3 ml/min; Est GFR (Non-African American) 85.7 ml/min; Globulin 4.5 gm/dl (2.5-4.0); Potassium 3.9 mmol/L (3.5-5.1); Total Protein 7.2 gm/dl (6.4-8.2)
[2020-10-25 07:39] LABS: ALC (manual) 1.37 K/uL (1.2-3.4); ANC (manual) 6.81 K/uL (1.4-6.5); Basophils # (manual) 0.19 K/uL (0-0.2); Basophils % (manual) 1.8 %; Eosinophils # (manual) 0.46 K/uL (0-0.5); Eosinophils % (manual) 4.4 %; Lymphocytes # (manual) 1.37 K/uL (1.2-3.4); Lymphocytes % (manual) 13.2 %; Metamyelocytes # (manual) 0.46 K/uL (0-0); Metamyelocytes % (manual) 4.4 %; Monocytes # (manual) 0.73 K/uL (0.11-0.59); Myelocytes # (manual) 0.36 K/uL (0-0); Myelocytes % (manual) 3.5 %; Neutrophils # (manual) 6.81 K/uL (1.4-6.5); Neutrophils % (manual) 65.7 %
[2020-10-25] MEDS: amLODIPine BESYLATE 5 MG TAB PO SCH (09:38)
[2020-10-25] MEDS: ENOXAPARIN INJ 40 MG/0.4 ML SYR SQ SCH (09:39)
[2020-10-25] MEDS: cefTRIAXone SODIUM 2,000 MG in DEXTROSE 5% 50 ML IV SCH (09:50)
--- NOTE | 2020-10-25 10:49 | Hospitalist Progress Note ---
Date of Service October 25, 2020 Assessment & Plan (1) Lyme disease: * Anaplasmosis smear negative. * Ig M+ with IgG for Lyme disease pending. Western blot confirmation will be sent. * Anaplasmosis antibody pending * Ehrlichiosis and babesiosis testing pending - Continue ceftriaxone and doxycycline -> Doing better today. PT did recommend SNF on 10/23; however, the patient reports he would be unwilling to go. Re- evaluated today with note pending. He reports he did well. - I tried to discharge him today, but he reported he "would not be safe" going home today. I told I thought he should go tomorrow. (2) Pneumonia: CXR on 10/22 with bibasilar infiltrates. - Abx as above - DuoNebs every 2 hours as needed (3) Benign essential hypertension: BP today is 160/75, but generally well-controlled in the hospital. - Continue amlodipine 2.5 mg daily (4) CKD (chronic kidney disease) stage 2, GFR 60-89 ml/min: Baseline Cr ~1.0 - 1.1, eGFR ~70. CKD Stage II. - Monitor -> At baseline; Cr 0.9 on 10/25 (5) Bipolar 1 disorder: Patient reports that he has done better in the past with addition of temazepam 30 mg at bedtime as needed along with some amount of Ativan. His PDMP shows no prescriptions for these, and I do not feel comfortable adding additional benzo to his mixture of medications. - Continue usual regimen of mirtazapine, olanzapine, Seroquel, and trazodone. - Add melatonin at night. (6) Generalized anxiety disorder: See above (7) Persistent insomnia: See above (8) Neurogenic claudication due to lumbar spinal stenosis: No complaints today. (9) Impaired fasting glucose: Glucose 102 upon admission. A1c was 5.6% in 05/2020. A1c was 5.9% this admission. - No inpatient needs (10) Abnormal LFTs: AST/ALT were 245/[address] abdomen and pelvis without acute findings related to liver disease. - Follow -> Down today still. (11) DVT prophylaxis: Lovenox 40 mg SQ daily Admission and Anticipated Discharge Date Admission Date: October 22, 2020 Subjective Feels well today. Says he is "getting stronger, but no there yet." Reports no fevers/chills, chest pain, shortness of breath, abdominal pain, nausea, or vomiting. Physical Exam Constitutional: WD/WN, vitals as above Eyes: EOM intact bilaterally; no conjunctival abnormality ENMT: external ear and nose normal, oropharynx normal Neck: trachea midline, no thyromegaly normal visual inspection Respiratory: normal respiratory effort, lungs clear to auscultation no respiratory distress Cardiovascular: RRR, no murmur, no edema Gastrointestinal (Abdomen): Inspection/Auscultation: abdomen normal to inspection; abdomen not distended Musculoskeletal: no cyanosis or clubbing, extremities motor strength 5/5 Skin: + ulcer (Left posterior knee) Neurologic: moves all extremities and awake Psychiatric: Orientation: alert, oriented to person and cooperative Results & Data Results & Data ([facility]) Vital Signs (Past 12 Hours) Vital Signs Temp Pulse Pulse Resp BP Pulse Ox 10/25/20 07:52 36.9 C 84 18 160/82 H 91 10/25/20 03:10 37.1 C 75 20 118/69 92 10/25/20 00:00 81 10/24/20 23:08 37.2 C 81 20 134/68 90 PG Care Time/CCT Total # of Minutes Spent Total Time Spent with Patient: Total time spent is greater than 50% in coordination of care (as documented) at patient's floor/unit and/or counseling patient: Coding Level of Care Code 32774 Subseq Hosp Care Lvl 2 Diagnoses Lyme disease A69.20 Pneumonia J18.9 Benign essential hypertension I10 CKD (chronic kidney disease) stage 2, GFR 60-89 ml/min N18.2 Bipolar 1 disorder F31.9 Generalized anxiety disorder F41.1 Persistent insomnia G47.00 Neurogenic claudication due to lumbar spinal stenosis M48.062 Impaired fasting glucose R73.01 Abnormal LFTs R94.5 DVT prophylaxis Z29.9
[2020-10-25] MEDS: traZODone HCL 50 MG TAB PO SCH (20:49)
[2020-10-25] MEDS: MIRTAZAPINE SOLTAB 15 MG PO SCH (20:49)
[2020-10-25] MEDS: OLANZapine 20 MG TABLET PO SCH (20:49)
[2020-10-25] MEDS: MELATONIN 3 MG TAB PO SCH (20:50)
[2020-10-26] MEDS: DOXYCYCLINE HYCLATE 100 MG in DEXTROSE 5% 100 ML IV SCH ×2 (01:39→14:24)
[2020-10-26] MEDS: ENOXAPARIN INJ 40 MG/0.4 ML SYR SQ SCH (09:54)
[2020-10-26] MEDS: cefTRIAXone SODIUM 2,000 MG in DEXTROSE 5% 50 ML IV SCH (09:54)
[2020-10-26] MEDS: amLODIPine BESYLATE 5 MG TAB PO SCH (09:54)
[2020-10-26] MEDS: MELATONIN 3 MG TAB PO SCH (20:35)
[2020-10-26] MEDS: MIRTAZAPINE SOLTAB 15 MG PO SCH (20:36)
[2020-10-26] MEDS: traZODone HCL 50 MG TAB PO SCH (20:36)
[2020-10-26] MEDS: OLANZapine 20 MG TABLET PO SCH (20:36)
--- NOTE | 2020-10-26 21:50 | Hospitalist Progress Note ---
Date of Service October 26, 2020 Assessment & Plan (1) Lyme disease: * Anaplasmosis smear negative. * Ig M+ with IgG for Lyme disease pending. Western blot confirmation will be sent. * Anaplasmosis antibody pending * Ehrlichiosis and babesiosis testing pending - Continue ceftriaxone and doxycycline -> Doing better today. PT did recommend SNF on 10/23; however, the patient reports he would be unwilling to go. Re- evaluated today with note pending. He reports he did well. Patient continue to feel weak and does not feel comfortable being discharged. (2) Pneumonia: CXR on 10/22 with bibasilar infiltrates. - Abx as above - DuoNebs every 2 hours as needed (3) Benign essential hypertension: BP today is 160/75, but generally well-controlled in the hospital. - Continue amlodipine 2.5 mg daily (4) CKD (chronic kidney disease) stage 2, GFR 60-89 ml/min: Baseline Cr ~1.0 - 1.1, eGFR ~70. CKD Stage II. - Monitor -> At baseline; Cr 0.9 on 10/25 (5) Bipolar 1 disorder: Patient reports that he has done better in the past with addition of temazepam 30 mg at bedtime as needed along with some amount of Ativan. His PDMP shows no prescriptions for these, and I do not feel comfortable adding additional benzo to his mixture of medications. - Continue usual regimen of mirtazapine, olanzapine, Seroquel, and trazodone. - Add melatonin at night. (6) Generalized anxiety disorder: See above (7) Persistent insomnia: See above (8) Neurogenic claudication due to lumbar spinal stenosis: No complaints today. (9) Impaired fasting glucose: Glucose 102 upon admission. A1c was 5.6% in 05/2020. A1c was 5.9% this admission. - No inpatient needs (10) Abnormal LFTs: AST/ALT were 245/[address] abdomen and pelvis without acute findings related to liver disease. - Follow -> Down today still. (11) DVT prophylaxis: Lovenox 40 mg SQ daily Admission and Anticipated Discharge Date Admission Date: October 22, 2020 Subjective Patient reports no new symptoms. Review of Systems Review of Systems: All systems reviewed & are unremarkable except as noted in HPI & below Physical Exam Physical Exam: Constitutional: WD/WN, vitals as above Eyes: EOM intact bilaterally; no conjunctival abnormality ENMT: external ear and nose normal, oropharynx normal Neck: trachea midline, no thyromegaly normal visual inspection Respiratory: normal respiratory effort, lungs clear to auscultation no respiratory distress Cardiovascular: RRR, no murmur, no edema Gastrointestinal (Abdomen): Inspection/Auscultation: abdomen normal to inspection; abdomen not distended Musculoskeletal: no cyanosis or clubbing, extremities motor strength 5/5 Skin: + ulcer (Left posterior knee) Neurologic: moves all extremities and awake Psychiatric: Orientation: alert, oriented to person and cooperative Results & Data Results & Data ([facility]) Vital Signs (Past 12 Hours) Vital Signs Temp Pulse Pulse Resp BP BP Pulse Ox 10/26/20 19:51 37.3 C 74 20 156/75 H 92 10/26/20 15:50 37.3 C 79 18 117/68 91 10/26/20 11:17 68 10/26/20 11:13 37.1 C 76 18 143/69 H 93 PG Care Time/CCT Total # of Minutes Spent Total Time Spent with Patient: Total time spent is greater than 50% in coordination of care (as documented) at patient's floor/unit and/or counseling patient: Coding Level of Care Code 62086 Subseq Hosp Care Lvl 3 Diagnoses Lyme disease A69.20 Pneumonia J18.9 Benign essential hypertension I10 CKD (chronic kidney disease) stage 2, GFR 60-89 ml/min N18.2 Bipolar 1 disorder F31.9 Generalized anxiety disorder F41.1 Persistent insomnia G47.00 Neurogenic claudication due to lumbar spinal stenosis M48.062 Impaired fasting glucose R73.01 Abnormal LFTs R94.5 DVT prophylaxis Z29.9 Time Spent (min) 35 Comment chart review and discussed with piano case and bench assembler
[2020-10-27] MEDS: DOXYCYCLINE HYCLATE 100 MG in DEXTROSE 5% 100 ML IV SCH ×2 (01:41→13:09)
[2020-10-27] MEDS: ENOXAPARIN INJ 40 MG/0.4 ML SYR SQ SCH (07:41)
[2020-10-27] MEDS: amLODIPine BESYLATE 5 MG TAB PO SCH (07:42)
[2020-10-27] MEDS: cefTRIAXone SODIUM 2,000 MG in DEXTROSE 5% 50 ML IV SCH (07:42)
[2020-10-27 14:31] LABS: 18KDIGG Band NON-REACTIVE; 23KDIGG Band NON-REACTIVE; 23KDIGM Band REACTIVE; 28KDIGG Band NON-REACTIVE; 30KDIGG Band REACTIVE; 39KDIGG Band REACTIVE; 39KDIGM Band NON-REACTIVE; 41KDIGG Band REACTIVE; 41KDIGM Band NON-REACTIVE; 45KDIGG Band NON-REACTIVE; 58KDIGG Band REACTIVE; 66KDIGG Band NON-REACTIVE; 93KDIGG Band NON-REACTIVE; Lyme Antibodies, WB IgG NEGATIVE (NEGATIVE); Lyme Antibodies, WB IgM NEGATIVE (NEGATIVE)
[2020-10-28 18:11] LABS: Babesia microti DNA Not Detected (Not Detected); Babesia microti IgG <1:64 titer (<1:64); Ehrlichia chaff IgG Ab <1:64 (<1:64); Ehrlichia chaff IgM Ab <1:20 (<1:20)
--- NOTE | 2020-10-29 06:33 | Discharge Summary ---
Date of Service October 27, 2020 Admission HPI Per Admitting Provider The patient is a 70-year-old male with a past medical history including neurogenic claudication due to lumbar spinal stenosis, hypertension, bipolar 1 disorder, CKD stage III, chronic diarrhea, SISI, impaired fasting glucose, obesity and persistent insomnia. He reports that he lives near [facility], where there are plenty of ticks, but does not remember ever having a tick bite in his medial left knee area. He reports that he has been unable to get up off of his couch for the past few days, and he was noted to be incontinent of stool and urine when found by EMS personnel today. Principal Diagnosis Lyme disease Discharge Exam Constitutional: WD/WN, vitals as above Eyes: EOM intact bilaterally; no conjunctival abnormality ENMT: external ear and nose normal, oropharynx normal Neck: trachea midline, no thyromegaly normal visual inspection Respiratory: normal respiratory effort, lungs clear to auscultation no respiratory distress Cardiovascular: RRR, no murmur, no edema Gastrointestinal (Abdomen): Inspection/Auscultation: abdomen normal to inspection; abdomen not distended Musculoskeletal: no cyanosis or clubbing, extremities motor strength 5/5 Skin: + ulcer (Left posterior knee) Neurologic: moves all extremities and awake Psychiatric: Orientation: alert, oriented to person and cooperative Discharge Data Allergies Allergy/AdvReac Type Severity Reaction Status Date / Time bee venom protein (honey bee) Allergy Severe facial Verified 10/22/20 19:25 swelling No Known Drug Allergies Allergy Verified 10/22/20 19:25 Consultations 10/22/20 22:22 ED Decision to Admit Stat Ordered Studies 10/22/20 22:24 CT abd pelvis IV con only Urgent Hospital Course (1) Lyme disease: * Anaplasmosis smear negative. * Ig M+ with IgG for Lyme disease pending. Western blot confirmation will be sent. * Anaplasmosis antibody pending * Ehrlichiosis and babesiosis testing pending - Continue ceftriaxone and doxycycline -> Doing better today. PT did recommend SNF on 10/23; however, the patient reports he would be unwilling to go. Patient is agreeable to discharge home. He does not want rehab or SNF. Family will pick him up. will continue doxycyclne for 19 more doses to complete 14 days. Lyme confirmatory tests are pending Lyme IgM is positive. (2) Pneumonia: CXR on 10/22 with bibasilar infiltrates. - Abx as above - DuoNebs every 2 hours as needed (3) Benign essential hypertension: BP today is 160/75, but generally well-controlled in the hospital. - Continue amlodipine 2.5 mg daily (4) CKD (chronic kidney disease) stage 2, GFR 60-89 ml/min: Baseline Cr ~1.0 - 1.1, eGFR ~70. CKD Stage II. - Monitor -> At baseline; Cr 0.9 on 10/25 (5) Bipolar 1 disorder: Patient reports that he has done better in the past with addition of temazepam 30 mg at bedtime as needed along with some amount of Ativan. His PDMP shows no prescriptions for these, and I do not feel comfortable adding additional benzo to his mixture of medications. - Continue usual regimen of mirtazapine, olanzapine, Seroquel, and trazodone. - Add melatonin at night. (6) Generalized anxiety disorder: See above (7) Persistent insomnia: See above (8) Neurogenic claudication due to lumbar spinal stenosis: No complaints today. (9) Impaired fasting glucose: Glucose 102 upon admission. A1c was 5.6% in 05/2020. A1c was 5.9% this admission. - No inpatient needs (10) Abnormal LFTs: AST/ALT were 245/[address] abdomen and pelvis without acute findings related to liver disease. - Follow -> Down today still. (11) DVT prophylaxis: Lovenox 40 mg SQ daily Total Time Total Time Spent Total Time Spent (In Minutes): 32 Total Time Includes: Examination of the Patient, Discharge Planning and Medication Reconciliation Discharge Plan Discharge Items Patient Disposition: Home - Self-Care Reason For Visit: LYME,PNEUMONIA,WEAKNESS Discharge Diagnosis: Lyme, Weakness Condition on Discharge: Good Activity: Resume your previous activity Non-emergency contact: Primary Care Provider Call non-emergency contact if: you have any medication questions Follow-up/Referrals: Saeid Pastor MD [Primary Care Provider] - 11/02/20 3:00 pm Diet: Regular Addtl Attending Provider Instructions: You completed treatment for pneumonia. You may require antibiotics for tick-borne disease. Will recommend to continue doxycycline for 19 more dosis. will recommend followup with PCP in 1-2 weeks. You stated to case management that you did not have any needs such as home physical therapy. Pending Studies at Discharge: No Stand-Alone Forms: My [facility] [employer], Smoking Cessation Medications and DC Order Prescriptions: New doxycycline monohydrate 100 mg tablet 100 mg PO BID Qty: 19 RF: 0 Continued amlodipine 2.5 mg tablet 2.5 mg PO QAM Qty: 90 RF: 3 mirtazapine 45 mg tablet 45 mg PO HS Qty: 90 RF: 3 trazodone 50 mg tablet 150 mg PO HS Qty: 90 RF: 5 olanzapine [Zyprexa] 20 mg tablet 20 mg PO HS Qty: 30 RF: 2 Discontinued quetiapine [Seroquel] 100 mg tablet See Rx Instructions .ROUTE .COMPLEX Qty: 84 RF: 0 Discharge Orders: Discharge Order (Routine); Ordered 10/27/20 Ordered By: Jamaal Edmondson Admission Data Admit Date/Time: 10/22/20 22:43 Attending Provider: Jamaal Edmondson Admit Provider: Torres Sadler Primary Care Provider: Saeid Pastor Other Providers: Miguel Funez Other Interventions: Discharge Summary Assessment (RN) Last Done: 10/27/20 12:28 Coding Level of Care Code D/C Day Management >30 mins Diagnoses Lyme disease A69.20 Pneumonia J18.9 Benign essential hypertension I10 CKD (chronic kidney disease) stage 2, GFR 60-89 ml/min N18.2 Bipolar 1 disorder F31.9 Generalized anxiety disorder F41.1 Persistent insomnia G47.00 Neurogenic claudication due to lumbar spinal stenosis M48.062 Impaired fasting glucose R73.01 Abnormal LFTs R94.5 DVT prophylaxis Z29.9
== END 2020-10-27 13:57 | disposition home or self-care (01) | DRG 867 ==
LOC: ED 18:48 → SUATTDRO 22:43 → 2W 22:43